=== PATIENT | male | born 1955 | race Caucasian/White ===

== ENCOUNTER → 2017-06-09 09:21 | Outpatient (CLI) | payer MEDICARE, SELFPAY ==
--- NOTE | 2017-06-09 09:23 | NM_ITS ---
CLINICAL: 62-year-old male with reported history of abdominal pain. RADIONUCLIDE HEPATOBILIARY SCINTIGRAPHY COMPARISON: None available FINDINGS: Following the intravenous administration of 5.4 mCi of 99m Tc Mebrofenin, hepatobiliary images reveal:. 1. Relatively prompt and homogeneous radiopharmaceutical concentration is noted by a normal sized liver. No parenchymal defects are identified. 2. Gallbladder activity is identified at 15 minutes post radiopharmaceutical administration. 3. Small intestinal tract is not visualized during 60 minutes of pre-fatty meal sequential image acquisition with small bowel observed following fatty meal consumption. 4. Washout of the radiopharmaceutical by the hepatic parenchyma appears qualitatively normal. The patient was administered a fatty meal (8 ounces of Boost). The post fatty meal ingestion gallbladder ejection fraction calculated at 60 minutes was noted to be 24.0 % (normal greater than 30%). [place]/Hepatobilliary Img w/Pharm Int IMPRESSION: 1. ABNORMAL 99m Tc Mebrofenin hepatobiliary imaging examination with fatty meal ingestion. A. A gallbladder ejection fraction calculated to be less than 30% following the administration of an ingested fatty meal is consistent with the presence of functional hepatobiliary disease (gallbladder and/or sphincter of Oddi dyskinesia) and/or organic hepatobiliary disease (chronic acalculous cholecystitis and/or cystic duct syndrome) in patients with intermediate to high pretest probabilities of hepatobiliary illness. (Paige and Dung, J Nucl Med 43: 1603, 2002). Electronically Signed: Edin Chiu DO at 23:10 EDT Tel , Service support ,
== END ==
PROVIDERS: Family Provider Internal Medicine Infectious Disease; PCP Internal Medicine Infectious Disease; Visit Provider Surgery
DX: R10.11 Right upper quadrant pain (principal)
CPT/HCPCS: 78227; A9537

== ENCOUNTER → 2017-06-10 15:35 | Outpatient (CLI) | payer MEDICARE, SELFPAY ==
[2017-06-10 16:47] LABS: Amphetamine Urine VISTA NEGATIVE (<1000 ng/mL); Barbiturate Urine VISTA NEGATIVE (< 200 ng/mL); Benzodiazepine Urine VISTA NEGATIVE (< 200 ng/mL); Cocaine Urine VISTA NEGATIVE (< 300 ng/mL); Ecstacy Urine VISTA NEGATIVE (< 500 ng/mL); Methadone Urine VISTA NEGATIVE (< 300 ng/mL); PCP Urine VISTA NEGATIVE (< 25 ng/mL); THC Urine VISTA NEGATIVE (< 50 ng/mL); Vista UDS pH Range 4
== END ==
PROVIDERS: Family Provider Internal Medicine Infectious Disease; PCP Internal Medicine Infectious Disease; Visit Provider Anesthesiology Pain Medicine
DX: F11.20 Opioid dependence, uncomplicated (principal)
CPT/HCPCS: 80307

== ENCOUNTER → 2017-07-22 15:15 | Outpatient (CLI) | payer MEDICARE, SELFPAY ==
--- NOTE | 2017-07-22 15:15 | DT_ITS ---
This patient was seen during an EMR downtime July 20, 2017 - July 27, 2017. This patient may have a combination of paper and electronic documentation or all paper documentation. All documentation is viewable within the e-chart portion of [facility] for each patient visit.
== END ==
PROVIDERS: Family Provider Internal Medicine Infectious Disease; PCP Internal Medicine Infectious Disease; Visit Provider Otolaryngology
DX: J32.9 Chronic sinusitis, unspecified (principal)
CPT/HCPCS: 87070; 87205

== ENCOUNTER → 2017-09-16 12:36 | Outpatient (CLI) | payer MEDICARE, SELFPAY ==
[2017-09-16 13:58] LABS: Amphetamine Urine VISTA NEGATIVE (<1000 ng/mL); Barbiturate Urine VISTA NEGATIVE (< 200 ng/mL); Benzodiazepine Urine VISTA NEGATIVE (< 200 ng/mL); Cocaine Urine VISTA NEGATIVE (< 300 ng/mL); Ecstacy Urine VISTA NEGATIVE (< 500 ng/mL); Methadone Urine VISTA NEGATIVE (< 300 ng/mL); PCP Urine VISTA NEGATIVE (< 25 ng/mL); THC Urine VISTA NEGATIVE (< 50 ng/mL); Vista UDS pH Range 5
== END ==
PROVIDERS: Family Provider Internal Medicine Infectious Disease; PCP Internal Medicine Infectious Disease; Visit Provider Anesthesiology Pain Medicine
DX: F11.20 Opioid dependence, uncomplicated (principal)
CPT/HCPCS: 80307

== ENCOUNTER → 2017-12-17 08:49 | Outpatient (CLI) | payer MEDICARE, SELFPAY ==
--- NOTE | 2017-12-17 08:51 | RAD_ITS ---
STUDY: X-RAY - RIGHT KNEE REASON FOR EXAM: Chronic pain. TECHNIQUE: 4 view(s) of the knee. COMPARISON: None. FINDINGS: Normal visualized distal femur. Normal visualized proximal tibia and fibula. Normal proximal tibiofibular articulation. Normal medial femorotibial compartment. Normal lateral femorotibial compartment. There is mild joint space narrowing of the patellofemoral articulation. There is chondrocalcinosis. There is a small joint effusion. There is vascular calcification. RAD/Knee 4 or More Views IMPRESSION: Mild patellofemoral arthrosis. Chondrocalcinosis. Small joint effusion. Electronically Signed: Austin Schaffer MD at 11:34 EDT Tel , Service support ,
--- NOTE | 2017-12-17 08:51 | RAD_ITS ---
STUDY: X-RAY - LEFT KNEE REASON FOR EXAM: Chronic pain. TECHNIQUE: 4 view(s) of the knee. COMPARISON: Radiographs 11/21/2014. FINDINGS: Normal visualized distal femur. Normal visualized proximal tibia and fibula. Normal proximal tibiofibular articulation. Normal medial femorotibial compartment. There is mild joint space narrowing of the lateral femorotibial compartment. There is a very small patellar osteophyte and mild joint space narrowing of the patellofemoral articulation. There is chondrocalcinosis. There is a small joint effusion. RAD/Knee 4 or More Views IMPRESSION: Mild arthrosis of the lateral femorotibial and patellofemoral compartments as on the prior study. Chondrocalcinosis. Small joint effusion. Electronically Signed: Austin Schaffer MD at 11:33 EDT Tel , Service support ,
== END ==
PROVIDERS: Family Provider Internal Medicine Infectious Disease; PCP Internal Medicine Infectious Disease; Referring Provider Orthopaedic Surgery; Visit Provider Orthopaedic Surgery
DX: M25.561 Pain in right knee (principal); M25.562 Pain in left knee
CPT/HCPCS: 73564

== ENCOUNTER 2018-05-14 09:18 | Day surgery (SDC) | payer MEDICARE, SELFPAY ==
[2018-05-14 09:58] VITALS: BP 146/65; PULSE 67; RESP 18; TEMP 36.9; O2SAT 98; BMI 31.8
[2018-05-14 10:20] LABS: Bedside Glucose 218 mg/dL (70-110)
[2018-05-14] MEDS: Vancomycin IV 1,000 MG/200 ML BAG 200 MG IV (13:25)
[2018-05-14] MEDS: Bupiv/Epi 0.25% 30 ML Vial (13:37)
[2018-05-14 14:28] VITALS: BP 134/62; BP 146/65; PULSE 64; RESP 16; TEMP 36.1; O2SAT 96
[2018-05-14 14:44] VITALS: BP 144/68; BP 146/65; PULSE 64; RESP 16; O2SAT 98
[2018-05-14 14:59] VITALS: BP 146/65; BP 147/63; PULSE 66; RESP 16; TEMP 36.1; O2SAT 99
[2018-05-14 16:08] VITALS: BP 146/65
== END 2018-05-14 16:09 | disposition home or self-care (01) ==
LOC: SDC 09:20 → AC 09:22
PROVIDERS: Family Provider Internal Medicine Infectious Disease; PCP Internal Medicine Infectious Disease; Referring Provider Anesthesiology Pain Medicine; Visit Provider Anesthesiology Pain Medicine
PROC: (CPT 63688; principal; 2018-05-14 10:45)
DX: M96.1 Postlaminectomy syndrome, not elsewhere classified (principal); M54.10 Radiculopathy, site unspecified; M54.5 Low back pain; G89.29 Other chronic pain; I25.10 Atherosclerotic heart disease of native coronary artery without angina pectoris; Z79.01 Long term (current) use of anticoagulants; E11.9 Type 2 diabetes mellitus without complications; I10 Essential (primary) hypertension; E78.00 Pure hypercholesterolemia, unspecified; G47.30 Sleep apnea, unspecified; K21.9 Gastro-esophageal reflux disease without esophagitis; Z79.84 Long term (current) use of oral hypoglycemic drugs; Z79.82 Long term (current) use of aspirin; Z79.899 Other long term (current) drug therapy; Z87.891 Personal history of nicotine dependence; Z95.5 Presence of coronary angioplasty implant and graft
CPT/HCPCS: 00300; 63685; 95972; 76000; 82962; J7120

== ENCOUNTER → 2018-12-01 15:32 | Outpatient (CLI) | payer MEDICARE, SELFPAY ==
[2018-12-01 16:50] LABS: Amphetamine Urine VISTA NEGATIVE (<1000 ng/mL); Barbiturate Urine VISTA NEGATIVE (< 200 ng/mL); Benzodiazepine Urine VISTA NEGATIVE (< 200 ng/mL); Cocaine Urine VISTA NEGATIVE (< 300 ng/mL); Ecstacy Urine VISTA NEGATIVE (< 500 ng/mL); Methadone Urine VISTA NEGATIVE (< 300 ng/mL); PCP Urine VISTA NEGATIVE (< 25 ng/mL); THC Urine VISTA NEGATIVE (< 50 ng/mL); Vista UDS pH Range 5
== END ==
PROVIDERS: Family Provider Internal Medicine Infectious Disease; PCP Internal Medicine Infectious Disease; Referring Provider Anesthesiology Pain Medicine; Visit Provider Anesthesiology Pain Medicine
DX: F11.20 Opioid dependence, uncomplicated (principal)
CPT/HCPCS: 80307

== ENCOUNTER → 2019-01-03 12:36 | Outpatient (CLI) | payer MEDICARE, SELFPAY ==
--- NOTE | 2019-01-03 12:39 | RAD_ITS ---
STUDY: X-RAY - PELVIS AND LEFT HIP REASON FOR EXAM: Male, 63 years old. Chronic pain for 15 years after accident TECHNIQUE: 3 views of the pelvis and hip. COMPARISON: None. FINDINGS: The left hip is intact and located. There is flattening of the femoral head neck junction. Mineralization is normal. The bones of the pelvis are intact. Lower abdominal gas shadows are unremarkable. RAD/HIP, UNI W/ Pelvis 2-3 Views IMPRESSION: 1. No acute findings of trauma. 2. 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 Refer to definitive imaging with [facility] Electronically Signed: Monalisa Cruz, at 19:06 EST Tel , Service support ,
--- NOTE | 2019-01-03 12:40 | RAD_ITS ---
STUDY: X-RAY - LUMBAR SPINE REASON FOR EXAM: Male, 63 years old. Chronic pain for 15 years after accident, recent trauma weeks ago TECHNIQUE: 3 view(s) of the lumbar spine were obtained. COMPARISON: 12 Jul 2014 FINDINGS: Lumbar spine is intact and aligned with moderate diffuse degenerative change. There is multilevel ventral fusing osteophytes. Mineralization is normal. SI joints are intact. Electronic termination device is present in the left flank with leads ascending superior to the upper edge of the film. Hips are located. Appearance is similar to prior. RAD/Lumbar Spine 2 or 3 Views IMPRESSION: 1. No acute findings or change since prior. 2. Moderate degenerative change. Electronically Signed: Monalisa Cruz, at 18:50 EST Tel , Service support ,
== END ==
PROVIDERS: Family Provider Internal Medicine Infectious Disease; PCP Internal Medicine Infectious Disease; Referring Provider Anesthesiology Pain Medicine; Visit Provider Anesthesiology Pain Medicine
DX: M54.9 Dorsalgia, unspecified (principal); M25.552 Pain in left hip; G89.29 Other chronic pain
CPT/HCPCS: 72100; 73502

== ENCOUNTER → 2019-10-04 16:33 | Outpatient (CLI) | payer MEDICARE, SELFPAY ==
--- NOTE | 2019-10-04 16:38 | RAD_ITS ---
HISTORY: CONSTIPATION, PAIN, HERNIA EXAMINATION/TECHNIQUE: XR Abdomen W/ Erect View: 4 views total COMPARISON: Small bowel series 07/12/2013 FINDINGS: No free peritoneal air. Nonspecific intestinal gas pattern. No bowel obstruction. Scattered colonic stool. Nondilated small bowel loop within the central abdomen. Lumbar spine and lower dorsal syndesmophytes. Partial ankylosis of the upper left SI joint. Paired dorsal column neurostimulator electrodes at the lower dorsal spine. RAD/Abd Inc Decub and/or Erect IMPRESSION: 1. No bowel obstruction or significant constipation. 2. Nonspecific intestinal gas pattern. Consider further correlation with CT. at 0510 Reported and signed by: Venkatesh Reyes MD Electronically Signed: Venkatesh Reyse, at 5:36 EDT Tel , Service support ,
== END ==
PROVIDERS: PCP Internal Medicine Infectious Disease; Referring Provider Internal Medicine Gastroenterology; Visit Provider Internal Medicine Gastroenterology
DX: K59.00 Constipation, unspecified (principal); R10.9 Unspecified abdominal pain
CPT/HCPCS: 74019

== ENCOUNTER → 2019-10-26 15:11 | Outpatient (CLI) | payer MEDICARE, SELFPAY ==
[2019-10-26 17:24] LABS: Amphetamine Urine VISTA NEGATIVE (<1000 ng/mL); Barbiturate Urine VISTA NEGATIVE (< 200 ng/mL); Benzodiazepine Urine VISTA NEGATIVE (< 200 ng/mL); Cocaine Urine VISTA NEGATIVE (< 300 ng/mL); Ecstacy Urine VISTA NEGATIVE (< 500 ng/mL); Methadone Urine VISTA NEGATIVE (< 300 ng/mL); PCP Urine VISTA NEGATIVE (< 25 ng/mL); THC Urine VISTA NEGATIVE (< 50 ng/mL); Vista UDS pH Range 5
== END ==
PROVIDERS: PCP Internal Medicine Infectious Disease; Referring Provider Anesthesiology Pain Medicine; Visit Provider Anesthesiology Pain Medicine
DX: F11.20 Opioid dependence, uncomplicated (principal)
CPT/HCPCS: 80307

== ENCOUNTER → 2020-03-14 16:55 | Outpatient (CLI) | payer MEDICARE, SELFPAY ==
[2020-03-14 17:46] LABS: Amphetamine Urine VISTA NEGATIVE (<1000 ng/mL); Barbiturate Urine VISTA NEGATIVE (< 200 ng/mL); Benzodiazepine Urine VISTA NEGATIVE (< 200 ng/mL); Cocaine Urine VISTA NEGATIVE (< 300 ng/mL); Ecstacy Urine VISTA NEGATIVE (< 500 ng/mL); Methadone Urine VISTA NEGATIVE (< 300 ng/mL); PCP Urine VISTA NEGATIVE (< 25 ng/mL); THC Urine VISTA NEGATIVE (< 50 ng/mL); Vista UDS pH Range 5
== END ==
PROVIDERS: PCP Internal Medicine Infectious Disease; Referring Provider Anesthesiology Pain Medicine; Visit Provider Anesthesiology Pain Medicine
DX: F11.20 Opioid dependence, uncomplicated (principal)
CPT/HCPCS: 80307

== ENCOUNTER → 2020-06-28 16:49 | Outpatient (CLI) | payer MEDICARE, SELFPAY ==
[2020-06-12 18:59] VITALS: BMI 31.8
[2020-06-28 17:24] LABS: Amphetamine Urine VISTA NEGATIVE (<1000 ng/mL); Barbiturate Urine VISTA NEGATIVE (< 200 ng/mL); Benzodiazepine Urine VISTA NEGATIVE (< 200 ng/mL); Cocaine Urine VISTA NEGATIVE (< 300 ng/mL); Ecstacy Urine VISTA NEGATIVE (< 500 ng/mL); Methadone Urine VISTA NEGATIVE (< 300 ng/mL); PCP Urine VISTA NEGATIVE (< 25 ng/mL); THC Urine VISTA NEGATIVE (< 50 ng/mL); Vista UDS pH Range 5
== END ==
PROVIDERS: Referring Provider Anesthesiology Pain Medicine; Visit Provider Anesthesiology Pain Medicine
DX: F11.20 Opioid dependence, uncomplicated (principal)
CPT/HCPCS: 80307

== ENCOUNTER 2021-03-13 17:32 | Outpatient (CLI) | payer MEDICARE, SELFPAY ==
[2021-03-13 18:42] LABS: Amphetamine Urine VISTA NEGATIVE (<1000 ng/mL); Barbiturate Urine VISTA NEGATIVE (< 200 ng/mL); Benzodiazepine Urine VISTA NEGATIVE (< 200 ng/mL); Cocaine Urine VISTA NEGATIVE (< 300 ng/mL); Ecstacy Urine VISTA NEGATIVE (< 500 ng/mL); Methadone Urine VISTA NEGATIVE (< 300 ng/mL); PCP Urine VISTA NEGATIVE (< 25 ng/mL); THC Urine VISTA NEGATIVE (< 50 ng/mL); Vista UDS pH Range 5
== END 2021-03-13 23:59 | disposition short-term general hospital (02) ==
PROVIDERS: PCP Internal Medicine Infectious Disease; Referring Provider Anesthesiology Pain Medicine; Visit Provider Anesthesiology Pain Medicine
DX: F11.20 Opioid dependence, uncomplicated (principal)
CPT/HCPCS: 80307

== ENCOUNTER → 2021-08-02 | Outpatient (CLI) | payer MEDICARE, SELFPAY | END | disposition home or self-care (01) | LOC: LABSPEC 13:49 | PROVIDERS: PCP Internal Medicine Infectious Disease; Visit Provider Podiatrist | DX: L97.512 Non-pressure chronic ulcer of other part of right foot with fat layer exposed (principal) | CPT/HCPCS: 87070; 87075; 87077; 87186; 87205 ==

== ENCOUNTER 2021-08-06 09:34 | Outpatient (RCR) | payer MEDICARE, SELFPAY ==
[2021-08-06 09:46] VITALS: BP 129/50; PULSE 68; RESP 18; TEMP 36.1; BMI 29.5
--- NOTE | 2021-08-06 10:33 | PCM.WC.HP ---
History of Present Illness Date of Service: 08/06/21 Progress of Wound: This 66-year-old male with history of diabetes presented to my office on 08/02/2021. Patient had developed a blister plantar first metatarsal head when debrided this yielded a full-thickness ulceration with significant edema and erythema to the first metatarsal head on the right side. This was debrided in my office. Wound was cultured at that time and prescription for doxycycline and ciprofloxacin was dispensed. Patient was instructed to offload the site with a surgical shoe and first metatarsal head offloading pad. He was compliant with this. He notes significant improvement upon his visit today. Patient denies constitutional symptoms or pain and has no other complaints. [facility] Medical History Abnormal ultrasound of gallbladder Benign hypertension CAD (coronary artery disease) Chronic back pain Chronic neck pain Diabetes Diabetes Encounter for long-term (current) insulin use GERD (gastroesophageal reflux disease) GERD (gastroesophageal reflux disease) Glaucoma Gout HTN (hypertension) Obesity Sleep apnea Home Medications aspirin 81 mg tablet,delayed release (Adult Aspirin Regimen) 81 mg PO QDAY 06/01/17 [History Last Taken Unknown] bimatoprost 0.01 % eye drops (Lumigan) 1 drp ophthalmic (eye) QPM 06/01/17 [History Last Taken Unknown] calcitriol 3 mcg/gram topical ointment (Vectical) 1 applic topical PRN PRN Rash/Topical Irritation 06/01/17 [History Last Taken Unknown] calcium carbonate 500 mg calcium (1,250 mg) tablet (Calcium 500) 500 mg PO DAILY 06/01/17 [History Last Taken Unknown] coenzyme Q10 100 mg capsule 100 mg PO QDAY 06/01/17 [History Last Taken Unknown] dorzolamide 22.3 mg-timolol 6.8 mg/mL eye drops (Cosopt) 1 drp ophthalmic (eye) BID 06/01/17 [History Last Taken Unknown] gabapentin 600 mg tablet 600 mg PO TID 06/01/17 [History Last Taken 05/14/18 05:00] magnesium oxide 400 mg PO QDAY 06/01/17 [History Last Taken Unknown] metoprolol succinate 50 mg tablet,extended release 24 hr 50 mg PO BID 06/01/17 [History Last Taken 05/14/18 05:00] morphine 15 mg immediate release tablet 15 mg PO BID 06/01/17 [History Last Taken 05/14/18 05:00] nitroglycerin 0.4 mg sublingual tablet 0.4 mg sublingual Q5M PRN CHEST PAIN 06/01/17 [History Last Taken Unknown] omega-3 fatty acids 1,000 mg capsule (Fish Oil Concentrate) 1,000 mg PO QDAY 06/01/17 [History Last Taken Unknown] omeprazole 40 mg capsule,delayed release 40 mg PO QDAY 06/01/17 [History Last Taken 05/14/18 05:00] oxymetazoline 0.05 % nasal spray (Afrin (oxymetazoline)) 2 spray intranasal Q12H PRN Allergies 06/01/17 [History Last Taken Unknown] polyethylene glycol 3350 8.5 gram oral powder packet 17 g PO QDAY 06/01/17 [History Last Taken Unknown] pravastatin 40 mg tablet 40 mg PO QHS 06/01/17 [History Last Taken Unknown] tizanidine 4 mg tablet 4 mg PO BID 06/01/17 [History Last Taken Unknown] topiramate 200 mg capsule sprinkle,extended release 24 hr 200 mg PO BID 06/01/17 [History Last Taken 05/14/18 06:00] tramadol 50 mg tablet 50 mg PO Q6H PRN PRN Pain 06/01/17 [History Last Taken Unknown] rivaroxaban 10 mg tablet (Xarelto) 10 mg PO DAILY 12/17/17 [History Last Taken Unknown] sotalol 160 mg tablet 160 mg PO BID 05/10/18 [History Last Taken 05/14/18 05:00] lancets 33 gauge (OneTouch Delica Plus Lancet) #100 ea 06/12/20 [Rx Last Taken Unknown] Accu-Chek Fastclix Lancet Drum (lancets) #102 ea 07/12/20 [Rx Last Taken Unknown] apixaban 5 mg tablet 5 mg PO BID 09/11/20 [History Last Taken Unknown] flash glucose scanning reader ([employer] Medical SolutionsStyle Mp 2 [place]) #1 ea 09/11/20 [Rx Last Taken Unknown] flash glucose sensor (FreeStyle Mp 2 Sensor) #2 ea 09/11/20 [Rx Last Taken Unknown] gabapentin 800 mg tablet 800 mg PO DAILY 09/11/20 [History Last Taken Unknown] netarsudil 0.02 % eye drops 1 drp ophthalmic (eye) ONCE 09/11/20 [History Last Taken Unknown] alcohol swabs (BD Alcohol Swabs) 1 pad topical 4X/DAY #200 ea 09/13/20 [Rx Last Taken Unknown] insulin aspart U-100 100 unit/mL (3 mL) subcutaneous pen (Novolog Flexpen U-100 Insulin aspart) 35 unit (0.35 mL) subcut .TIDCM #33 mL 12/03/20 [Rx Last Taken Unknown] blood sugar diagnostic (OneTouch Verio test strips) #100 ea 04/10/21 [Rx Last Taken Unknown] pen needle, diabetic 32 gauge x 1/4 (Novofine 32) #120 ea 04/10/21 [Rx Last Taken Unknown] Allergy/AdvReac Type Severity Reaction Status Date / Time Penicillins Allergy Mild rash Verified 03/19/21 15:42 Sulfa (Sulfonamide Allergy Mild rash Verified 03/19/21 15:42 Antibiotics) Family History Mother Cancer liver Father Colon cancer Cancer lung CVA (cerebral vascular accident) Surgical History H/O heart artery stent (~01/2017) H/O nephrolithotomy with removal of calculi H/O sinus surgery History of back surgery History of esophagogastroduodenoscopy (EGD) (~03/2017) History of neck surgery S/P colonoscopy S/P foot surgery Status post cardiac catheterization Status post carotid surgery (~05/2016) Social History Smoking Status: Former smoker alcohol intake: never ROS Constitutional Constitutional: Denies systems reviewed and no addt'l complaints, except as documented, change in weight or chills Eyes Eyes: Denies acute decrease in peripheral vision, change in vision or double vision ENT HEENT: Denies change in voice, epistaxis or facial pain Cardiovascular Cardiovascular: Denies abdominal pain, chest pain with activity or dyspnea at rest Respiratory/Chest Respiratory/Chest: Denies chest congestion, dyspnea or dyspnea on exertion Gastrointestinal Gastrointestinal: Denies bloating, change in bowel habits or cramping Genitourinary Genitourinary: Denies burning urination, change in libido or dribbling Musculoskeletal Musculoskeletal: Denies back pain, deformity or limited range of motion Vital Signs Vital Signs Vital Signs: 08/06/21 09:46 Temperature 96.9 F L Temperature Source Temporal Pulse Rate 68 Respiratory Rate 18 Blood Pressure 129/50 H Blood Pressure Mean 76 Blood Pressure Source Monitor Blood Pressure Position Sitting Blood Pressure Location Left Arm Oxygen Delivery Method Room Air Weight Weight: 104.326 kg Body Mass Index (BMI) 29.5 Physical Exam Narrative Patient is alert oriented person place and time. Vascular: Dorsalis pedis posterior tibial pulses palpable 2 out of 4. Atrophic skin changes noted with skin thinning shiny taut appearance diminished digital hair growth. Neurologic: Light touch protective sensation absent to bilateral feet Dermatologic: Healed right plantar first metatarsal head ulceration resolving erythema and edema to the site. Callus to plantar left first metatarsal head. Musculoskeletal: Dropfoot right lower extremity. No other deformities at this time. No pain with gaseous bilateral feet. Debridement Note Debridement Note Post-Debridement Measurements and Additional Note: Post-Debridement Measurements/Treatment - Nurse 1 - General Ulcer Assessment Start: 08/06/21 09:46 Freq: Status: Active Protocol: KAELA.LOWEXT Activity Type Activity Date Activity User E-sign Co-sign Detail Recorded Client Recorded Date Recorded By Document 08/06/21 09:46 [id number] 08/06/21 10:09 08/06/21 09:46 - Today's Visit Information Arrival Mode Ambulatory,Cane Transfer Assistance None Accompanied by self Patient Identification Verified (Name & Yes ) Patient Requires Transmission-Based Yes Precautions Safety Precautions Fall Prevention Finger Stick Blood Sugar(mg/dl) (if 174 indicated): Blood Sugar Stated by Patient Height and Weight Height 6 ft 2 in Weight 104.326 kg Weight in Pounds 230.0 lbs Weight Measurement Method Stated by Patient Body Mass Index (BMI) 29.5 BMI Classification Overweight BSA - Aaron 2.31 Vital Signs Temperature (97.8 F-99.1 F) 96.9 F L Temperature Source Temporal Pulse Rate (60-100) 68 Respiratory Rate (12-18) 18 Respiratory rate source Observation Oxygen Delivery Method Room Air Blood Pressure (90/60-120/80) 129/50 H Blood Pressure Mean 76 Source Monitor Position Sitting Blood Pressure Location Left Arm History Since Last Visit- (Skip if this is Patient's initial visit) Left Footwear Regular Shoe Right Footwear Removable Cast Walker/Walking Boot Pain Scale: 0-10 Numeric Is Patient Pain Free? Yes Lower Extremity Assessment/ Foot Assessment/ Toe Nail Assessment Right -Popliteal Doppler Multiphasic -Posterior Tibial Palpable No -Posterior Tibial Doppler Multiphasic -Dorsalis Pedis Palpable No -Extremity Color Hemosiderin -Hair Growth on Legs No -Hair Growth on Toes No -Temperature of Extremity Warm -Capillary Refill Less than 3 Seconds -Dependent Rubor No -Lipodermatosclerosis No -Other Deformity No -Prior Foot Ulcer No -Charcot Joint No -Prior Amputation No -Thick No -Discolored No -Deformed Yes -Improper Length & Hygeine No Left -Claudication Assessment None -Posterior Tibial Doppler Multiphasic -Dorsalis Pedis Palpable No -Dorsalis Pedis Doppler Multiphasic -Extremity Color Hemosiderin -Hair Growth on Legs No -Hair Growth on Toes No -Capillary Refill Less than 3 Seconds -Dependent Rubor No -Lipodermatosclerosis No -Other Deformity No -Prior Foot Ulcer No -Charcot Joint No -Prior Amputation No -Thick No -Discolored No -Deformed Yes -Improper Length & Hygeine No Neuropathy Assessment Feet - Top Side and Bottom <Entered> (a) Communication Assessment Preferred language [place] [employer] Conditioning Manager Required No Able to Read Yes Able to Write Yes Communication Tools None Caregiver Communication Skills No Impairment Impairment Right Hearing Abillity Normal Left Hearing Abillity Normal Visual Assistive Devices Glasses Teaching Assessment Preferences Verbal,Written, Audio/Visual, Demonstration Barriers to Learning None Readiness To Learn Excellent Willingness to Engage in Self Management High Activies Readiness to Engage in Self Management High Activities Anxiety Level Calm Cooperation Cooperative Perception Coherent Interest in Health Problem Asks Questions Education Importance Acknowledges Need Does Patient Smoke tobacco or other Yes substances Smoking Status Former smoker Is Patient Diabetic Yes Functional Assessment Assistive Device With Patient Yes List Device(s) with Patient cane Culture/Sabianist/Insurance Service Representative Cultural/Sabianist Needs that may affect No Treatment Plan Would you allow our hospital licensed prosthetist/orthotist to No meet you for the purpose of spiritual/ emotional support? Insurance Service Representative to contact place of quaker No Teaching: Wound Center *Welcome to the Wound Center -Person Taught Patient -Teaching Method Discussion -Response to teaching Verbalize understanding (a) 1 - - WC - Nurse 1 - General Ulcer Measurement Start: 08/06/21 09:46 Freq: Status: Active Protocol: Activity Type Activity Date Activity User E-sign Co-sign Detail Recorded Client Recorded Date Recorded By Document 08/06/21 09:46 MW [id number] 08/06/21 10:09 MW 08/06/21 09:46 Wound Center Nurse 1 #2 Left plantar -Combined with other wound No -Current Size (cm) - Length 0.1 -Current Size (cm) - Width 0.1 -Current Size (cm) - Depth 0.1 -Total Square Cm 0.01 -Date of Last Picture (Recall this 08/06/21 field) -Photo Taken Yes -Epithelialization None Present -Tunneling No -Undermining/Tunneling No -Circular Undermining No -Exudate Amt None Present -Granulation Amt None Present (0 %) -Granulation Quality N/A -Slough/Fibrin Yes -Necrosis Amt Large (67-100%) -Necrotic Tissue Type Adherent Slough -Structure Exposed N/A -Texture (Etelvina-wound Skin Appearance) Assessed,Callus -Moisture (Etelvina-wound Skin Appearance) Assessed,Dry/ Scaly -Color (Etelvina-wound Skin Appearance) No Abnormality, Assessed -Temperature (Etelvina-wound Skin No Abnormality Appearance) (Pt Warm) -Tenderness on Palpation (Etelvina-wound No Skin Appearance) -Ulcer Cleansing Rinsed/ Irrigated with Saline -Foul Odor after Cleansing No -Anesthetic Used 4% Lidocaine Solution #1 right plantar -Combined with other wound No -Current Size (cm) - Length 0.1 -Current Size (cm) - Width 0.1 -Current Size (cm) - Depth 0.1 -Total Square Cm 0.01 -Date of Last Picture (Recall this 08/06/21 field) -Photo Taken Yes -Epithelialization None Present -Tunneling No -Undermining/Tunneling No -Circular Undermining No -Exudate Amt None Present -Wound Margin Flat & Intact -Granulation Amt None Present (0 %) -Granulation Quality N/A -Slough/Fibrin Yes -Necrosis Amt Large (67-100%) -Structure Exposed N/A -Texture (Etelvina-wound Skin Appearance) Assessed,Callus -Moisture (Etelvina-wound Skin Appearance) Assessed,Dry/ Scaly -Color (Etelvina-wound Skin Appearance) Assessed, Hemosiderin Staining -Temperature (Etelvina-wound Skin No Abnormality Appearance) (Pt Warm) -Tenderness on Palpation (Etelvina-wound No Skin Appearance) -Ulcer Cleansing Rinsed/ Irrigated with Saline -Foul Odor after Cleansing No -Anesthetic Used 4% Lidocaine Solution Lower Limb Edema Present Yes Right Calf (cm) 36.0 Right Ankle (cm) 21.5 Left Calf (cm) 36.8 Left Ankle (cm) 23.0 WC - Nurse 2 - General Ulcer CM Notes Start: 08/06/21 09:46 Freq: Status: Active Protocol: Activity Type Activity Date Activity User E-sign Co-sign Detail Recorded Client Recorded Date Recorded By Document 08/06/21 10:19 JONATHAN [id number] 08/06/21 10:24 JONATHAN 08/06/21 10:19 Wound Center Nurse 2 #2 Left plantar -Time 10:21 -Correct Patient No -Correct Side, Site, Position No -Correct Procedure No -Procedure Performed No -Post Debridement (cm) - Length 0 -Post Debridement (cm) - Width 0 -Post Debridement (cm) - Depth 0 -Total Square (Post) (cm) 0 -Area of Debridement (cm) - Length 0 -Area of Debridement (cm) - Width 0 -Total Square (Area) (cm) 0 -Tunneling No -Undermining/Tunneling No -Circular Undermining No -Wound/Ulcer Outcome Healed- Epithelialized -Ulcer Cleansing Rinsed/ Irrigated with Saline -Foul Odor after Cleansing No -Bioengineered Tissue No -Debridement - Subq, 1st 20sq cm No #1 right plantar -Correct Patient No -Correct Side, Site, Position No -Correct Procedure No -Procedure Performed No -Post Debridement (cm) - Length 0 -Post Debridement (cm) - Width 0 -Post Debridement (cm) - Depth 0 -Total Square (Post) (cm) 0 -Area of Debridement (cm) - Length 0 -Area of Debridement (cm) - Width 0 -Total Square (Area) (cm) 0 -Wound/Ulcer Outcome Healed- Epithelialized Pain Scale: 0-10 Numeric Is Patient Pain Free? Yes KAELA - Nurse 3 - General Ulcer D/C NN Start: 08/06/21 09:46 Freq: Status: Active Protocol: Activity Type Activity Date Activity User E-sign Co-sign Detail Recorded Client Recorded Date Recorded By Document 08/06/21 10:24 JONATHAN [id number] 08/06/21 10:24 JONATHAN 08/06/21 10:24 Is Patient Pain Free? Yes WC - Visit Discharge Discharge Condition Stable Ambulatory Status Ambulatory Transportation Private Auto Medication Reconcilliation completed & Yes provided to patient/care provider Clinical Summary of Care Provided Yes Assessment/Plan Assessment/Plan (1) Type 2 diabetes mellitus with diabetic polyneuropathy: CODE(S): E11.42 - Type 2 diabetes mellitus with diabetic polyneuropathy PLAN: Patient examined evaluated, all findings rm with patient in detail. Patient will complete his course of doxycycline and ciprofloxacin. If he notes any residual redness or worsening of his harjinder or recurrence of his wound he will contact us immediately. Patient will return to his diabetic shoes with AFO on the right lower extremity. Patient will continue to check his feet daily perform tight blood glucose regulation and ambulate in diabetic shoes at all times. If his wounds recur we will consider additional vascular testing, advanced wound care products, total contact casting. Patient will follow up in 3 weeks in my clinic for additional follow-up to ensure no recurrence of infection or wound.
[2021-08-06 11:29] LABS: Hemoglobin A1c 6.9 % (3.8-5.6)
[2021-08-06 11:33] LABS: Erythrocyte Sedimentation Rate 38 mm/hr (0-20)
[2021-08-06 11:35] LABS: Absolute Lymphocyte Count 2.39 X10^3/uL (0.83-4.51); Absolute Neutrophil Count 4.6 X10^3/uL (2.0-7.7); Basophil# 0.03 X10^3/uL; Basophil% 0.4 % (0-1); Eosinophils% 1.3 % (0-5); Hematocrit 37.1 % (40-54); Hemoglobin 12.2 g/dL (13.0-16.5); Lymphocyte # 2.39 X10^3/ul (0.83-4.51); Mean Corp Hgb Conc 32.9 g/dL (32-36); Mean Corpuscular Volume 91.4 fL (80-94); Mean Platelet Vol. 10.5 fl (6.2-12.0); Monocyte# 0.58 X10^3/uL; Monocyte% 7.5 % (0-10); NRBC Flagged by Analyzer 0 % (0-5); Neutrophil % 59.5 % (47-70); Platelet Count 169 K/mm3 (150-450); RBC Distribution Width CV 14.5 % (11.6-14.6); RBC Distribution Width SD 48.4 fl (35.1-43.9); Red Blood Count 4.06 M/mm3 (4.6-6.2); White Blood Count 7.7 K/mm3 (4.4-11.0)
[2021-08-06 11:41] LABS: ALB/GLOB Ratio 0.9 RATIO (0.9-2.4); AST(SGOT) 25 U/L (15-37); Alanine Aminotransfer ALT/SGPT 39 U/L (16-61); Albumin, Serum 3.4 g/dL (3.2-5.0); Alkaline Phosphatase 80 U/L (45-117); Anion Gap 7 (5-15); BUN 29 mg/dL (7-18); BUN/Creat Ratio 30.1 RATIO (10-20); CRP 3.65 mg/L (0.0-3.0); Chloride 108 mmol/L (98-107); Creatinine, Serum 0.96 mg/dL (0.70-1.30); EST Glomerular Filtration Rate 83 mL/min (>60); Est Glom Filt Rate - Afr Amer 101 mL/min (>60); Estimated Creatinine Clearance 90.38 ml/min; Globulin 3.9 g/dL (2.2-4.2); Glucose 154 mg/dL (74-106); Protein, Total 7.3 g/dL (6.4-8.2); Sodium Level 143 mmol/L (136-145)
== END 2021-08-07 16:11 | disposition home or self-care (01) ==
LOC: WC 09:34
PROVIDERS: PCP Internal Medicine Infectious Disease; Referring Provider Podiatrist; Visit Provider Podiatrist
DX: Z09 Encounter for follow-up examination after completed treatment for conditions other than malignant neoplasm (principal); E11.42 Type 2 diabetes mellitus with diabetic polyneuropathy; Z79.4 Long term (current) use of insulin; I10 Essential (primary) hypertension; R60.0 Localized edema; M54.9 Dorsalgia, unspecified; M21.371 Foot drop, right foot; L84 Corns and callosities; I25.10 Atherosclerotic heart disease of native coronary artery without angina pectoris; G89.29 Other chronic pain; H40.9 Unspecified glaucoma; M10.9 Gout, unspecified; G47.30 Sleep apnea, unspecified; E66.9 Obesity, unspecified; Z68.29 Body mass index [BMI] 29.0-29.9, adult; Z79.82 Long term (current) use of aspirin; Z79.01 Long term (current) use of anticoagulants; Z79.899 Other long term (current) drug therapy; Z95.1 Presence of aortocoronary bypass graft; Z87.891 Personal history of nicotine dependence
CPT/HCPCS: 36415; 80053; 83036; 85025; 85652; 86140; 99213; G0463

== ENCOUNTER → 2021-12-31 | Outpatient (CLI) | payer MEDICARE, SELFPAY | END | disposition home or self-care (01) | PROVIDERS: PCP Internal Medicine Infectious Disease; Visit Provider Podiatrist | DX: L97.512 Non-pressure chronic ulcer of other part of right foot with fat layer exposed (principal) | CPT/HCPCS: 87070; 87075; 87077; 87186; 87205 ==

== ENCOUNTER → 2022-03-17 | Outpatient (CLI) | payer MEDICARE, SELFPAY ==
[2022-03-17 15:38] LABS: Hematocrit 35.2 % (40-54); Hemoglobin 11.5 g/dL (13.0-16.5); Mean Corp Hgb Conc 32.7 g/dL (32-36); Mean Corpuscular Volume 91.9 fL (80-94); Mean Platelet Vol. 11.9 fl (6.2-12.0); Platelet Count 115 K/mm3 (150-450); RBC Distribution Width CV 14.6 % (11.6-14.6); RBC Distribution Width SD 48.3 fl (35.1-43.9); Red Blood Count 3.83 M/mm3 (4.6-6.2); White Blood Count 6.1 K/mm3 (4.4-11.0)
[2022-03-17 16:14] LABS: ALB/GLOB Ratio 0.9 RATIO (0.9-2.4); AST(SGOT) 24 U/L (15-37); Alanine Aminotransfer ALT/SGPT 29 U/L (16-61); Albumin, Serum 3.4 g/dL (3.2-5.0); Alkaline Phosphatase 64 U/L (45-117); Anion Gap 11 (5-15); BUN 20 mg/dL (7-18); BUN/Creat Ratio 23.2 RATIO (10-20); Calcium,Total 8.9 mg/dL (8.5-10.1); Chloride 108 mmol/L (98-107); Creatinine, Serum 0.86 mg/dL (0.70-1.30); EST Glomerular Filtration Rate 95 mL/min (>60); Est Glom Filt Rate - Afr Amer 114 mL/min (>60); Globulin 3.7 g/dL (2.2-4.2); Glucose 167 mg/dL (74-106); Potassium 3.8 mmol/L (3.5-5.1); Protein, Total 7.1 g/dL (6.4-8.2); Sodium Level 141 mmol/L (136-145); Thyroid Stim Hormone (TSH) 5.17 uIU/mL (0.358-3.74)
[2022-03-17 16:17] LABS: Vitamin B12 605 pg/mL (211-911)
[2022-03-21 03:07] LABS: Free Kappa Light Chains 113.5 mg/L (3.3-19.4); Free Lambda Light Chains 39.4 mg/L (5.7-26.3)
[2022-03-21 21:23] LABS: Vitamin B1, Thiamine 287.8 nmol/L (66.5-200.0)
== END | disposition home or self-care (01) ==
PROVIDERS: PCP Internal Medicine Infectious Disease; Referring Provider Psychiatry & Neurology Neurology; Visit Provider Psychiatry & Neurology Neurology
DX: R93.2 Abnormal findings on diagnostic imaging of liver and biliary tract (principal); E11.65 Type 2 diabetes mellitus with hyperglycemia; G31.84 Mild cognitive impairment of uncertain or unknown etiology; G62.9 Polyneuropathy, unspecified
CPT/HCPCS: 36415; 80053; 82607; 82746; 83883; 84425; 84443; 85027

== ENCOUNTER → 2022-05-21 | Outpatient (CLI) | payer MEDICARE, OTHER, SELFPAY ==
[2022-05-21 17:18] LABS: Absolute Lymphocyte Count 1.75 X10^3/uL (0.83-4.51); Absolute Neutrophil Count 3.5 X10^3/uL (2.0-7.7); Basophil# 0.03 X10^3/uL; Basophil% 0.5 % (0-1); Eosinophil# 0.15 X10^3/uL; Eosinophils% 2.6 % (0-5); Hematocrit 32.3 % (40-54); Hemoglobin 10.2 g/dL (13.0-16.5); Lymphocyte # 1.75 X10^3/ul (0.83-4.51); Lymphocyte % 29.9 % (19-41); Mean Corp Hgb Conc 31.6 g/dL (32-36); Mean Corpuscular Hgb 29.6 pg (27.0-32.0); Mean Corpuscular Volume 93.6 fL (80-94); Mean Platelet Vol. 10.6 fl (6.2-12.0); Monocyte# 0.46 X10^3/uL; Monocyte% 7.9 % (0-10); NRBC Flagged by Analyzer 0 % (0-5); Neutrophil # 3.45 X10^3/uL (2.7-7.7); Neutrophil % 58.9 % (47-70); Platelet Count 123 K/mm3 (150-450); RBC Distribution Width CV 14.1 % (11.6-14.6); Red Blood Count 3.45 M/mm3 (4.6-6.2); White Blood Count 5.9 K/mm3 (4.4-11.0)
[2022-05-21 18:21] LABS: AST(SGOT) 27 U/L (15-37); Alanine Aminotransfer ALT/SGPT 33 U/L (16-61); Albumin, Serum 3.3 g/dL (3.2-5.0); Alkaline Phosphatase 70 U/L (45-117); Anion Gap 3 (5-15); BUN 23 mg/dL (7-18); BUN/Creat Ratio 21.1 RATIO (10-20); Calcium,Total 8.7 mg/dL (8.5-10.1); Chloride 103 mmol/L (98-107); Creatinine, Serum 1.09 mg/dL (0.70-1.30); EST Glomerular Filtration Rate 72 mL/min (>60); Est Glom Filt Rate - Afr Amer 87 mL/min (>60); Globulin 3.4 g/dL (2.2-4.2); Glucose 145 mg/dL (74-106); Potassium 3.9 mmol/L (3.5-5.1); Protein, Total 6.7 g/dL (6.4-8.2); Sodium Level 139 mmol/L (136-145)
== END | disposition home or self-care (01) ==
PROVIDERS: PCP Internal Medicine Infectious Disease
DX: I25.110 Atherosclerotic heart disease of native coronary artery with unstable angina pectoris (principal)
CPT/HCPCS: 36415; 80053; 85025

== ENCOUNTER → 2022-07-10 | Outpatient (CLI) | payer MEDICARE, OTHER, SELFPAY ==
--- NOTE | 2022-07-10 15:26 | CT_ITS ---
INDICATION: Hx lumbar surgery L5-S1; gait D/O;cent canal steno EXAMINATION: CT LUMBAR SPINE - CT Spine Lumbar W/O Contrast Injection TECHNIQUE: Helically acquired images were obtained of the lumbar spine. 2D reformats were reviewed. A radiation dose optimization technique was used for this scan. IV Contrast dosage and agent: None. RADIATION DOSAGE (If Supplied By Facility): CTDIvol = ( 48.22 ) mGy, DLP = ( 1931.97 ) mGycm COMPARISON: FINDINGS: VERTEBRAE: No fracture or traumatic subluxation. No discrete lytic or blastic abnormality observed. Normal alignment. DISCS and SPINAL CANAL: L1-2, Endplate spondylosis. Decreased disc height and small circumferential disc bulge. Degenerative changes of the bilateral facet joints. Mild narrowing of the central canal and bilateral intervertebral neural foramina. At L2-3, L3-4, L4-5, L5-S1, multilevel moderate to severe spinal canal and neural foraminal stenosis most severe at L4-5 due to congenitally short pedicles, circumferential disc bulge and degenerative change of the facet joints. VISUALIZED ABDOMEN: Visualized abdominal aorta is not dilated. There is no retroperitoneal adenopathy. CT/Spine Lumbar without Contrast IMPRESSION: L1-2, Mild narrowing of the central canal and bilateral intervertebral neural foramina. At L2-3, L3-4, L4-5, L5-S1, multilevel moderate to severe spinal canal and neural foraminal stenosis. Electronically Signed: Maxim Fuller MD at 6:52 EDT ,
== END | disposition home or self-care (01) ==
LOC: CT 15:22
PROVIDERS: PCP Internal Medicine Infectious Disease; Referring Provider Psychiatry & Neurology Neurology; Visit Provider Psychiatry & Neurology Neurology
DX: M48.061 Spinal stenosis, lumbar region without neurogenic claudication (principal)
CPT/HCPCS: 72131

== ENCOUNTER → 2022-07-21 | Outpatient (CLI) | payer MEDICARE, OTHER, SELFPAY ==
[2022-07-21 18:11] LABS: Free T3 1.9 pg/mL (2.18-3.98); T4 Free Direct 0.99 ng/dL (0.76-1.46); Thyroid Stim Hormone (TSH) 3.16 uIU/mL (0.358-3.74)
[2022-07-24 14:09] LABS: Albumin 3.5 g/dL (2.9-4.4); Alpha-1-Globulins 0.3 g/dL (0.0-0.4); Alpha-2-Globulins 0.8 g/dL (0.4-1.0); Free Kappa Light Chains 105.1 mg/L (3.3-19.4); Free Lambda Light Chains 34.9 mg/L (5.7-26.3); Gamma Globulin 0.8 g/dL (0.4-1.8); Immunoglobulin A 237 mg/dL (61-437); Immunoglobulin G 886 mg/dL (603-1613); Immunoglobulin M 46 mg/dL (20-172); PROEL- TOTAL PROTEIN 6.4 g/dL (6.0-8.5)
== END | disposition home or self-care (01) ==
LOC: MTLAB 16:08
PROVIDERS: PCP Internal Medicine Infectious Disease; Referring Provider Psychiatry & Neurology Neurology; Visit Provider Psychiatry & Neurology Neurology
DX: E03.9 Hypothyroidism, unspecified (principal); Z79.4 Long term (current) use of insulin; G62.9 Polyneuropathy, unspecified
CPT/HCPCS: 36415; 82784; 83883; 84165; 84439; 84443; 84481; 86334; 86335

== ENCOUNTER → 2022-07-30 | Outpatient (CLI) | payer MEDICARE, OTHER, SELFPAY ==
[2022-07-30 17:49] LABS: Anion Gap 5 (5-15); BUN 21 mg/dL (7-18); BUN/Creat Ratio 23.2 RATIO (10-20); Chloride 102 mmol/L (98-107); EST Glomerular Filtration Rate 89 mL/min (>60); Est Glom Filt Rate - Afr Amer 108 mL/min (>60); Glucose 134 mg/dL (74-106); Potassium 3.8 mmol/L (3.5-5.1); Sodium Level 139 mmol/L (136-145)
== END | disposition home or self-care (01) ==
PROVIDERS: PCP Internal Medicine Infectious Disease; Visit Provider Nurse Practitioner Family
DX: I48.0 Paroxysmal atrial fibrillation (principal); R06.02 Shortness of breath; Z51.81 Encounter for therapeutic drug level monitoring
CPT/HCPCS: 36415; 80048; 83880; 87070; 87075; 87077; 87186; 87205

== ENCOUNTER → 2022-11-24 | Outpatient (CLI) | payer MEDICARE, OTHER, SELFPAY ==
[2022-11-24 18:29] LABS: Free T3 2.2 pg/mL (2.18-3.98); Thyroid Stim Hormone (TSH) 2.87 uIU/mL (0.358-3.74)
== END | disposition home or self-care (01) ==
LOC: MTLAB 15:58
PROVIDERS: PCP Internal Medicine Infectious Disease; Referring Provider Psychiatry & Neurology Neurology; Visit Provider Psychiatry & Neurology Neurology
DX: G25.0 Essential tremor (principal); E11.65 Type 2 diabetes mellitus with hyperglycemia; Z79.4 Long term (current) use of insulin; R94.6 Abnormal results of thyroid function studies
CPT/HCPCS: 36415; 82140; 84443; 84481

== ENCOUNTER → 2023-02-19 | Outpatient (CLI) | payer MEDICARE, OTHER, SELFPAY ==
[2023-02-19 17:59] LABS: Amphetamine Urine VISTA NEGATIVE (<1000 ng/mL); Barbiturate Urine VISTA NEGATIVE (< 200 ng/mL); Benzodiazepine Urine VISTA NEGATIVE (< 200 ng/mL); Cocaine Urine VISTA NEGATIVE (< 300 ng/mL); Ecstacy Urine VISTA NEGATIVE (< 500 ng/mL); Methadone Urine VISTA NEGATIVE (< 300 ng/mL); PCP Urine VISTA NEGATIVE (< 25 ng/mL); THC Urine VISTA NEGATIVE (< 50 ng/mL); Vista UDS pH Range 7
== END | disposition home or self-care (01) ==
LOC: LAB 17:23
PROVIDERS: PCP Internal Medicine Infectious Disease; Referring Provider Anesthesiology Pain Medicine; Visit Provider Anesthesiology Pain Medicine
DX: F11.20 Opioid dependence, uncomplicated (principal)
CPT/HCPCS: 80307

== ENCOUNTER → 2023-04-08 | Outpatient (CLI) | payer MEDICARE, OTHER, SELFPAY | END | disposition home or self-care (01) | PROVIDERS: PCP Internal Medicine Infectious Disease; Visit Provider Podiatrist | DX: L97.512 Non-pressure chronic ulcer of other part of right foot with fat layer exposed (principal) | CPT/HCPCS: 87070; 87075; 87077; 87186; 87205 ==

== ENCOUNTER → 2023-05-07 | Outpatient (CLI) | payer MEDICARE, OTHER, SELFPAY | END | disposition home or self-care (01) | LOC: MTLAB 13:47 | PROVIDERS: PCP Internal Medicine Infectious Disease; Referring Provider Psychiatry & Neurology Neurology; Visit Provider Psychiatry & Neurology Neurology | DX: E72.20 Disorder of urea cycle metabolism, unspecified (principal) | CPT/HCPCS: 36415; 82140 ==

== ENCOUNTER → 2023-05-21 | Outpatient (CLI) | payer MEDICARE, OTHER, SELFPAY ==
--- NOTE | 2023-05-21 09:23 | RAD_ITS ---
STUDY: X-RAY - ESOPHAGUS (BARIUM SWALLOW) WITH FLUOROSCOPY REASON FOR EXAM: Male, 68 years old. Dysphagia, unspecified TECHNIQUE: 15 view(s) of the esophagus were obtained following swallowing of barium. FLUOROSCOPY TIME (if supplied): (34 seconds) minutes/seconds. 19.2 mGy. COMPARISON: None. FINDINGS: There is no demonstrated esophageal foreign body. There is no demonstrated stricture or mucosal abnormality. Normal gastroesophageal junction, without a demonstrated hiatal hernia. The patient ingested a 12 mm tablet at bedtime without any difficulty. Normal visualized aortic arch and descending thoracic aorta. Normal visualized pulmonary parenchyma. Normal visualized osseous structures of the thorax. RAD/Esophagus Single Contrast IMPRESSION: Normal plain film x-ray examination (barium swallow) of the esophagus. Electronically Signed: Yosef Dumas MD at 15:16 EDT ,
== END | disposition home or self-care (01) ==
LOC: RAD 09:22
PROVIDERS: PCP Internal Medicine Infectious Disease; Referring Provider Internal Medicine Gastroenterology; Visit Provider Internal Medicine Gastroenterology
DX: R13.10 Dysphagia, unspecified (principal)
CPT/HCPCS: 74220

== ENCOUNTER → 2023-06-04 | Outpatient (CLI) | payer MEDICARE, OTHER, SELFPAY | END | disposition home or self-care (01) | PROVIDERS: PCP Internal Medicine Infectious Disease; Referring Provider Podiatrist; Visit Provider Podiatrist | DX: L97.222 Non-pressure chronic ulcer of left calf with fat layer exposed (principal) | CPT/HCPCS: 87070; 87075; 87205 ==

== ENCOUNTER → 2023-11-30 | Outpatient (CLI) | payer MEDICARE, OTHER, SELFPAY | END | disposition home or self-care (01) | PROVIDERS: PCP Internal Medicine Infectious Disease; Referring Provider Psychiatry & Neurology Neurology; Visit Provider Psychiatry & Neurology Neurology | DX: E72.20 Disorder of urea cycle metabolism, unspecified (principal) | CPT/HCPCS: 36415; 82140 ==

== ENCOUNTER → 2024-01-20 | Outpatient (CLI) | payer MEDICARE, OTHER, SELFPAY ==
--- NOTE | 2024-01-20 12:40 | NEURO ---
NCS and/or EMG Patient Report Ordering Doctor: Christian Chavarria DATE OF SERVICE: 01/20/24 Tanmay presents with numbness and tingling in the left hand. He reports that it has progressively worsened. Electrodiagnostic findings: Left median motor response could not be obtained. Left ulnar motor response demonstrates normal distal latency and amplitude. There is no significant drop in conduction across the elbow. Absent left median sensory latency at the wrist. Needle EMG testing was performed the left upper limb as well as the left cervical paraspinals. All muscles tested showed no evidence of denervation with normal motor unit potentials. Electrodiagnostic impression: This is an abnormal study. 1. Electrodiagnostic findings suggestive of left-sided median mononeuropathy. This is consistent with an advanced left carpal tunnel syndrome. Multi Select Codes Neurology Neurology Interp Codes: 29060-19 Musc test done w/n test comp (interp) and 54625-42 Nrv cndj test 7-8 studies (interp)
== END | disposition home or self-care (01) ==
LOC: PSN 09:56
PROVIDERS: PCP Internal Medicine Infectious Disease; Referring Provider Psychiatry & Neurology Neurology; Visit Provider Psychiatry & Neurology Neurology
DX: M79.642 Pain in left hand (principal); M54.2 Cervicalgia
CPT/HCPCS: 95886; 95910

== ENCOUNTER 2024-03-08 08:12 | Outpatient (RCR) | payer MEDICARE, OTHER, SELFPAY ==
[2024-03-08 08:31] VITALS: BP 102/44; PULSE 75; RESP 18; TEMP 35.9; BMI 35.2
--- NOTE | 2024-03-08 09:50 | PCM.WC.HP ---
History of Present Illness Date of Service: 03/08/24 Progress of Wound: 69-year-old male presents today with left lower extremity ulceration significantly improved from previous evaluation in the office setting. Patient additionally has a plantar right foot wound. Patient has a history of type 2 diabetes with peripheral arterial disease and peripheral neuropathy. Patient recently underwent heart catheterization is being worked up for possible valve replacement which I believe is contributing to diffuse swelling to bilateral lower extremities. Patient denies any constitutional's chest pain calf pain shortness of breath or any acute signs or symptoms of infection to either 1 side. No other complaints. FOR[facility]LY [facility] Medical History (Updated 03/08/24 @ 09:[address] Srinath Inman, DP) Congestive heart failure Primary osteoarthritis, right shoulder Right shoulder pain Obesity Benign hypertension Diabetes Encounter for long-term (current) insulin use GERD (gastroesophageal reflux disease) Abnormal ultrasound of gallbladder HTN (hypertension) Glaucoma Chronic neck pain Chronic back pain Gout Sleep apnea CAD (coronary artery disease) Home Medications ?Medication ?Instructions ?Recorded ?Last Taken ?Type coenzyme Q10 100 mg capsule 100 mg PO QDAY 06/01/17 Unknown History magnesium oxide 400 mg PO QDAY 06/01/17 Unknown History morphine 15 mg immediate release 15 mg PO BID 06/01/17 05/14/18 05:00 History tablet nitroglycerin 0.4 mg sublingual 0.4 mg sublingual Q5M PRN CHEST 06/01/17 Unknown History tablet PAIN omeprazole 40 mg capsule,delayed 40 mg PO QDAY 06/01/17 05/14/18 05:00 History release tizanidine 4 mg tablet 4 mg PO BID 06/01/17 Unknown History lancets 33 gauge (OneTouch Delica #100 ea 06/12/20 Unknown Rx Plus Lancet) Accu-Chek Fastclix Lancet Drum #102 ea 07/12/20 Unknown Rx (lancets) apixaban 5 mg tablet 5 mg PO BID 09/11/20 Unknown History flash glucose scanning reader #1 ea 09/11/20 Unknown Rx (FreeStyle Mp 2 Monson) flash glucose sensor (FreeStyle #2 ea 09/11/20 Unknown Rx Mp 2 Sensor kit) netarsudil 0.02 % eye drops 1 drp ophthalmic (eye) ONCE 09/11/20 Unknown History alcohol swabs (BD Alcohol Swabs) 1 pad topical 4X/DAY #200 ea 09/13/20 Unknown Rx gabapentin 800 mg tablet 800 mg PO TID 03/17/22 Unknown History sotalol 160 mg tablet 240 mg PO BID 03/17/22 Unknown History tramadol 50 mg tablet 100 mg PO Q6H PRN PRN Pain 03/17/22 Unknown History clopidogrel 75 mg tablet 75 mg PO DAILY 09/16/22 Unknown History ranolazine 500 mg tablet,extended 500 mg PO BID 09/16/22 Unknown History release,12 hr rosuvastatin 40 mg tablet 40 mg PO DAILY 09/16/22 Unknown History Novolog FlexPen U-100 Insulin 100 See Rx Instructions subcut .TIDCM 02/27/23 Unknown Rx unit/mL (3 mL) subcutaneous #45 mL (insulin aspart U-100) Tresiba FlexTouch U-100 100 20 unit (0.2 mL) subcut QHS #45 mL 02/27/23 Unknown Rx unit/mL (3 mL) subcutaneous pen (insulin degludec) pen needle, diabetic 32 gauge x #120 ea 03/10/23 Unknown Rx 1/4 (Novofine 32) alfuzosin 10 mg tablet,extended 10 mg PO QDAY 08/11/23 Unknown History release 24 hr ascorbic acid (vitamin C) 1,000 mg 1 g PO BID 08/11/23 Unknown History tablet calcitriol 3 mcg/gram topical 1 applic topical ONCE PRN 08/11/23 Unknown History ointment (Vectical) calcium carbonate 600 mg PO BID 08/11/23 Unknown History cholecalciferol (vitamin D3) 25 25 mcg PO DAILY 08/11/23 Unknown History mcg (1,000 unit) capsule dorzolamide 2 % eye drops drp ophthalmic (eye) 08/11/23 Unknown History famotidine 20 mg tablet 20 mg PO DAILY 08/11/23 Unknown History furosemide 40 mg tablet 40 mg PO BID 08/11/23 Unknown History guaifenesin 400 mg tablet (Mucus 400 mg PO .BID 08/11/23 Unknown History Relief) lactobacillus combination no.4 3 3,000 mmu cells PO DAILY 08/11/23 Unknown History billion cell capsule (Probiotic) latanoprost 0.005 % eye drops drp ophthalmic (eye) 08/11/23 Unknown History mupirocin 2 % topical ointment 1 applic topical BID-TID 08/11/23 Unknown History netarsudil 0.02 % eye drops 1 drp ophthalmic (eye) QPM 08/11/23 Unknown History (Rhopressa) nystatin-triamcinolone 100,000 1 applic topical DAILY 08/11/23 Unknown History unit/g-0.1 % topical cream nystatin-triamcinolone 100,000 applic topical 08/11/23 Unknown History unit/g-0.1 % topical cream polyethylene glycol 3350 17 4 g PO DAILY PRN 08/11/23 Unknown History gram/dose oral powder (Miralax) salicylic acid 6 % topical cream 1 applic topical QAM 08/11/23 Unknown History sennosides 17.2 mg tablet (Senokot 34.4 mg PO BID 08/11/23 Unknown History Extra Strength) timolol maleate 0.5 % eye drops drp ophthalmic (eye) 08/11/23 Unknown History vitamin B complex 1 tab PO DAILY 08/11/23 Unknown History diclofenac sodium 1 % topical gel 4 g topical .QID PRN 11/30/23 Unknown Rx pain/stiffness #100 grams left wrist splint #1 ea 11/30/23 Unknown Rx propranolol 60 mg capsule,24 See Rx Instructions .Route 11/30/23 Unknown Rx hr,extended release .COMPLEX #120 caps blood sugar diagnostic (OneTouch #100 ea 03/01/24 Unknown Rx Verio test strips) diltiazem HCl 240 mg 240 mg PO QAM 03/01/24 Unknown History capsule,extended release 24 hr Allergy/AdvReac Type Severity Reaction Status Date / Time Penicillins Allergy Severe Anaphylaxis Verified 03/08/24 08:30 ciprofloxacin (From Cipro) AdvReac Severe Rash Verified 03/08/24 08:30 Sulfa (Sulfonamide AdvReac Severe rash Verified 03/08/24 08:30 Antibiotics) Family History Mother Cancer liver Father Colon cancer Cancer lung CVA (cerebral vascular accident) Surgical History History of eye surgery Status post carotid surgery (~05/2016) H/O sinus surgery H/O nephrolithotomy with removal of calculi Status post cardiac catheterization History of neck surgery History of back surgery S/P foot surgery S/P colonoscopy History of esophagogastroduodenoscopy (EGD) (~03/2017) H/O heart artery stent (~01/2017) Social History Smoking Status: Former smoker Tobacco: How many years used: 1 second hand exposure: No alcohol intake: never substance use type: does not use vinay/zoroastrian: Yazidi seatbelt use: always Vital Signs Vital Signs Vital Signs: 03/08/24 08:31 Temperature 96.7 F L Temperature Source Temporal Pulse Rate 75 Respiratory Rate 18 Blood Pressure 102/44 L Blood Pressure Mean 63 Blood Pressure Source Monitor Blood Pressure Position Semi-Fowlers Blood Pressure Location Left Arm Oxygen Delivery Method Room Air Weight Weight: 117.934 kg Body Mass Index (BMI) 35.2 Physical Exam Narrative Vascular: Dorsalis pedis posterior tibial pulses palpable 1 out of 4 to bilateral lower extremity compartments. Atrophic skin changes such as skin thinning taut shiny dry in appearance. Capillary fill time delayed to bilateral lower extremity. No gross edema noted today. This is improved from previous evaluation. Neurologic: Light touch protective sensation absent to bilateral feet. Dermatologic: Full-thickness wound to plantar right first MPJ full-thickness wound to posterior left leg. Both wounds demonstrate clean granular bases with clean skin edges no deep probing undermining. No signs of erythema edema malodor pain warmth. Wound is dry in nature demonstrating scant serous drainage. Musculoskeletal: Equinus deformity to right lower extremity contributing to wound formation as well as plantarflexed first ray. Muscular strength 4 out of 5 to bilateral lower extremity compartments. Debridement Note Debridement Note Post-Debridement Measurements and Additional Note: Post-Debridement Measurements/Treatment - Nurse 1 - General Ulcer Assessment Start: 03/08/24 08:23 Freq: Status: Active Protocol: KAELA.LOWEXT Activity Type Activity Date Activity User E-sign Co-sign Detail Recorded Client Recorded Date Recorded By Document 03/08/24 08:31 KW [id number] 03/08/24 08:52 KW 03/08/24 08:31 - Today's Visit Information Type of service Initial Visit Arrival Mode Ambulatory,Cane Accompanied by daughter Patient Identification Verified (Name & Yes ) Finger Stick Blood Sugar(mg/dl) (if 179 indicated): Blood Sugar Stated by Patient Height and Weight Height 6 ft Weight 117.934 kg Weight in Pounds 260.0 lbs Weight Measurement Method Estimated by Patient Body Mass Index (BMI) 35.2 BMI Classification Obese BSA - Aaron 2.38 Vital Signs Temperature (97.8 F-99.1 F) 96.7 F L Temperature Source Temporal Pulse Rate (60-100) 75 Pulse Location Monitor Respiratory Rate (12-18) 18 Respiratory rate source Observation Oxygen Delivery Method Room Air Blood Pressure (90/60-120/80) 102/44 L Blood Pressure Mean 63 Source Monitor Position Semi-Fowlers Blood Pressure Location Left Arm History Since Last Visit- (Skip if this is Patient's initial visit) Left Footwear Regular Shoe Right Footwear Regular Shoe Pain Scale: 0-10 Numeric Is Patient Pain Free? Yes Lower Extremity Assessment/ Foot Assessment/ Toe Nail Assessment Right -Posterior Tibial Palpable Yes -Posterior Tibial Doppler Multiphasic -Dorsalis Pedis Palpable Yes -Dorsalis Pedis Doppler Multiphasic -Extremity Color Hyperpigmented -Hair Growth on Legs No -Hair Growth on Toes No -Temperature of Extremity Cool -Capillary Refill Less than 3 Seconds -Thick No -Discolored No -Deformed No -Improper Length & Hygeine No Left -Posterior Tibial Palpable Yes -Posterior Tibial Doppler Multiphasic -Dorsalis Pedis Palpable Yes -Dorsalis Pedis Doppler Multiphasic -Extremity Color Hyperpigmented -Hair Growth on Legs No -Hair Growth on Toes No -Temperature of Extremity Cool -Capillary Refill Less than 3 Seconds -Thick No -Discolored No -Deformed No -Improper Length & Hygeine No Communication Assessment Preferred language Stateless Container Coordinator Required No Able to Read Yes Able to Write Yes Communication Tools None Caregiver Communication Skills No Impairment Impairment Right Hearing Abillity Hard of Hearing Left Hearing Abillity Hard of Hearing Visual Assistive Devices None Teaching Assessment Preferences Verbal,Written, Demonstration Barriers to Learning None Readiness To Learn Excellent Willingness to Engage in Self Management High Activies Readiness to Engage in Self Management High Activities Anxiety Level Calm Cooperation Cooperative Perception Coherent Interest in Health Problem Asks Questions Education Importance Acknowledges Need Does Patient Smoke tobacco or other Yes substances Smoking Status Former smoker Is Patient Diabetic Yes Functional Assessment Recent Decline in Ability to Perform Ambulation Culture/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 Amusement Park Ride Mechanic to contact place of anglican No WC - Nurse 1 - General Ulcer Measurement Start: 03/08/24 08:23 Freq: Status: Active Protocol: Activity Type Activity Date Activity User E-sign Co-sign Detail Recorded Client Recorded Date Recorded By Document 03/08/24 08:31 KW [id number] 03/08/24 08:52 KW 03/08/24 08:31 Wound Center Nurse 1 #4 LT LAT LE -Current Size (cm) - Length 0.1 -Current Size (cm) - Width 0.1 -Current Size (cm) - Depth 0.1 -Total Square Cm 0.01 -Date of Last Picture (Recall this 03/08/24 field) -Exudate Amt None Present -Texture (Etelvina-wound Skin Appearance) Assessed -Moisture (Etelvina-wound Skin Appearance) Assessed -Color (Etelvina-wound Skin Appearance) Assessed -Temperature (Etelvina-wound Skin No Abnormality Appearance) (Pt Warm) -Tenderness on Palpation (Etelvina-wound No Skin Appearance) -Ulcer Cleansing Rinsed/ Irrigated with Saline -Foul Odor after Cleansing No -Anesthetic Used 5% Lidocaine Gel -Wound Comment(s) SCABBED #3 RT PLANTAR -Current Size (cm) - Length 0.5 -Current Size (cm) - Width 0.3 -Current Size (cm) - Depth 0.4 -Total Square Cm 0.15 -Date of Last Picture (Recall this 03/08/24 field) -Exudate Amt Small -Exudate Type Serosanguineous -Wound Margin Distinct, Outline Attached -Granulation Amt Large (67-100%) -Granulation Quality Red -Texture (Etelvina-wound Skin Appearance) Assessed,Callus -Moisture (Etelvina-wound Skin Appearance) Assessed -Color (Etelvina-wound Skin Appearance) Assessed -Temperature (Etelvina-wound Skin No Abnormality Appearance) (Pt Warm) -Tenderness on Palpation (Etelvina-wound No Skin Appearance) -Ulcer Cleansing Rinsed/ Irrigated with Saline -Foul Odor after Cleansing No -Anesthetic Used 5% Lidocaine Gel Right Calf (cm) 35 Right Ankle (cm) 21 Left Calf (cm) 36 Left Ankle (cm) 22.6 WC - Nurse 2 - General Ulcer CM Notes Start: 03/08/24 08:23 Freq: Status: Active Protocol: Activity Type Activity Date Activity User E-sign Co-sign Detail Recorded Client Recorded Date Recorded By Document 03/08/24 09:09 JONATHAN [id number] 03/08/24 09:11 JONATHAN 03/08/24 09:09 Wound Center Nurse 2 #4 LT LAT LE -Time 09:09 -Correct Patient Yes -Correct Side, Site, Position Yes -Correct Procedure Yes -Procedure Performed Yes -Type of Procedure Debridement -Clinical Debridement Subcutaneous -Tissue Removed Subcutaneous -Post Debridement (cm) - Length 0.5 -Post Debridement (cm) - Width 0.3 -Post Debridement (cm) - Depth 0.1 -Total Square (Post) (cm) 0.15 -Area of Debridement (cm) - Length 0.5 -Area of Debridement (cm) - Width 0.3 -Total Square (Area) (cm) 0.15 -Tunneling No -Undermining/Tunneling No -Circular Undermining No -Wound/Ulcer Outcome Not Healed -Ulcer Cleansing Rinsed/ Irrigated with Saline -Foul Odor after Cleansing No -Bioengineered Tissue No -Bleeding Controlled with Pressure -Treatment Response Procedure Tolerated Well -Offloading No -Debridement - Subq, 1st 20sq cm No #3 RT PLANTAR -Time 09:10 -Correct Patient Yes -Correct Side, Site, Position Yes -Correct Procedure Yes -Procedure Performed Yes -Type of Procedure Debridement -Clinical Debridement Subcutaneous -Tissue Removed Subcutaneous -Post Debridement (cm) - Length 0.5 -Post Debridement (cm) - Width 0.5 -Post Debridement (cm) - Depth 0.1 -Total Square (Post) (cm) 0.25 -Area of Debridement (cm) - Length 0.5 -Area of Debridement (cm) - Width 0.5 -Total Square (Area) (cm) 0.25 -Tunneling No -Undermining/Tunneling No -Circular Undermining No -Wound/Ulcer Outcome Not Healed -Ulcer Cleansing Rinsed/ Irrigated with Saline -Foul Odor after Cleansing No -Bioengineered Tissue No -Bleeding Controlled with Pressure -Treatment Response Procedure Tolerated Well -Offloading No -Debridement - Subq, 1st 20sq cm Yes Pain Scale: 0-10 Numeric Is Patient Pain Free? Yes WC - Nurse 3 - General Ulcer D/C NN Start: 03/08/24 08:23 Freq: Status: Active Protocol: Activity Type Activity Date Activity User E-sign Co-sign Detail Recorded Client Recorded Date Recorded By Document 03/08/24 09:42 GOMEZ [id number] 03/08/24 09:44 RB 03/08/24 09:42 Wound Care Center Nurse 3 #4 LT LAT LE -Ulcer Cleansing Rinsed/ Irrigated with Saline -Primary Dressing Applied C Hydrogel ($) -Primary Dressing Covered/Secured with Dry Gauze,Dry Gauze & Roll Gauze,Secured with Tape #3 RT PLANTAR -Ulcer Cleansing Rinsed/ Irrigated with Saline -Other Dressing HYDROGEL -Primary Dressing Covered/Secured with Dry Gauze,Dry Gauze & Roll Gauze,Secured with Tape BILAT LE -Tubular Bandage Single Layer -Size of Tubigrip Used Size E -Size E ($) 2 Treatment Response Procedure Tolerated Well Pain Scale: 0-10 Numeric Is Patient Pain Free? Yes Teaching: Wound Center Compression Wraps & Stockings -Person Taught Patient,Family -Teaching Method Discussion, Demonstration -Response to teaching Reinforcement Needed Dressing Your Wound -Person Taught Patient,Family -Teaching Method Discussion, Demonstration -Response to teaching Reinforcement Needed WC - Visit Discharge Discharge Condition Stable Ambulatory Status Ambulatory,Cane Transportation Private Auto Accompanied by DAUGHTER Medication Reconcilliation completed & No provided to patient/care provider Clinical Summary of Care Provided Yes Assessment/Plan Assessment/Plan (1) Type 2 diabetes mellitus with diabetic polyneuropathy: CODE(S): E11.42 - Type 2 diabetes mellitus with diabetic polyneuropathy QUALIFIERS: Diabetes mellitus terminal system operator insulin use: with senior living use Qualified Code(s): E11.42 - Type 2 diabetes mellitus with diabetic polyneuropathy; 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 Topical anesthesia used. Hemostasis obtained with light compression. Pre and postdebridement measurements documented nursing notes. Patient tolerated procedure well. Plan for daily hydrogel DSD and Tubigrip for compression until arterial venous studies received Offload right plantar foot wound with diabetic shoe gear custom inserts Follow-up weekly (2) Other specified peripheral vascular diseases: CODE(S): I73.89 - Other specified peripheral vascular diseases (3) Non-pressure chronic ulcer of other part of right foot with fat layer exposed: CODE(S): L97.512 - Non-pressure chronic ulcer of other part of right foot with fat layer exposed (4) Non-pressure chronic ulcer of left calf with fat layer exposed: CODE(S): L97.222 - Non-pressure chronic ulcer of left calf with fat layer exposed
== END 2024-03-18 23:59 | disposition home or self-care (01) ==
LOC: WC 08:12
PROVIDERS: PCP Internal Medicine Infectious Disease; Referring Provider Podiatrist; Visit Provider Podiatrist
DX: E11.621 Type 2 diabetes mellitus with foot ulcer (principal); L97.412 Non-pressure chronic ulcer of right heel and midfoot with fat layer exposed; L97.222 Non-pressure chronic ulcer of left calf with fat layer exposed; I11.0 Hypertensive heart disease with heart failure; I50.9 Heart failure, unspecified; E11.42 Type 2 diabetes mellitus with diabetic polyneuropathy; Z79.4 Long term (current) use of insulin; E11.51 Type 2 diabetes mellitus with diabetic peripheral angiopathy without gangrene; I25.10 Atherosclerotic heart disease of native coronary artery without angina pectoris; K21.9 Gastro-esophageal reflux disease without esophagitis; M54.9 Dorsalgia, unspecified; G89.29 Other chronic pain; M79.89 Other specified soft tissue disorders; Z79.01 Long term (current) use of anticoagulants; Z79.891 Long term (current) use of opiate analgesic; Z79.899 Other long term (current) drug therapy; Z87.891 Personal history of nicotine dependence
CPT/HCPCS: 11042; 99214; G0463

== ENCOUNTER 2024-03-25 09:34 | Outpatient (RCR) | payer MEDICARE, OTHER, SELFPAY ==
[2024-03-19 01:19] VITALS: BP 102/44; PULSE 75; RESP 18; TEMP 35.9; BMI 35.2
--- NOTE | 2024-03-25 09:38 | VDLE_ITS ---
Reason For Study: BLE Wounds RIGHT LEFT CFV is compressible, spontaneous, phasic, CFV is compressible, spontaneous, phasic, competent and demonstrates normal competent, and demonstrates normal augmentation. augmentation. FV is compressible, spontaneous, phasic, FV is compressible, spontaneous, phasic, competent and demonstrates normal competent and demonstrates normal augmentation. augmentation. POP V is compressible, spontaneous, phasic, POP V is compressible, spontaneous, phasic, competent and demonstrates normal competent and demonstrates normal augmentation. augmentation. T/P Trunk is compressible. T/P Trunk is compressible. PTV is compressible. PTV is compressible. RT PerV is compressible. LT PerV is compressible. SFJ is competent and measures 0.81 cm. SFJ is INCOMPETENT and measures 0.50 cm. GSV proximal thigh measures 0.40 x 0.43 cm. GSV proximal thigh measures 0.25 x 0.24 cm. GSV at knee measures 0.37 x 0.49 cm. GSV at knee measures 0.34 x 0.32 cm. GSV above knee is competent. GSV is competent throughout. GSV below knee is INCOMPETENT for greater SSV at junction is competent and measures than 0.5 seconds. 0.39 cm. SSV at junction is competent and measures SSV mid calf is competent and measures 0.25 x 0.34 cm. 0.32 cm. SSV mid calf is competent and measures 0.25 x 0.31 cm. Procedure Exam performed in department. This is a venous duplex using B-mode, color flow and spectral Doppler. The exam was diagnostic. VL/Venous Duplex US - Amaury Extrem Interpretation Summary Deep veins of the lower extremities are bilaterally patent and compressible seg mentally. There is no evidence of deep vein thrombosis on either side. Valvular competence appears in tact within the proximal deep venous systems bilaterally. The great saphenous veins appear bila terally patent and compressible segmentally. The right sapheno-femoral junction is competent . The left sapheno-femoral junction is incompetent . The right great saphenous vein appears competent abov e the knee. The right great saphenous vein appears incompetent below the knee. The left great sapheno us vein appears segmentally competent. Small saphenous veins are patent and competent bilateral ly. Ordering Physician: Srinath Inman Referring Physician: Paco Zuleta Performed By: Yossi Blake RVT
--- NOTE | 2024-03-25 09:38 | ART_ITS ---
Reason For Study: BLE Wounds Procedure A bilateral lower extremity continuous wave Doppler with analog waveform analysis,segmental pressures,and ankle brachial indexes without exercise. Left Segmental Pressures Left brachial= 124mmHg. Left posterior tibial artery = 150mmHg. Left dorsalis pedis artery = 152mmHg. Left digit = 143 mmHg. The left posterior tibial artery waveforms are triphasic. The left dorsalis pedis waveforms are triphasic. Right Segmental Pressures Right brachial= 140mmHg. Right posterior tibial artery = 150mmHg. Right dorsalis pedis artery = 149mmHg. Right digit = 157 mmHg. The right posterior tibial artery waveforms are triphasic. The right dorsalis pedis waveforms are triphasic. Indices The right ankle brachial index by the posterior tibial artery is 1.07. The right ankle brachial index by the dorsalis pedis is 1.06. The right digital-brachial index is 1.12. The left ankle brachial index by the posterior tibial artery is 1.07. The left ankle brachial index by the dorsalis pedis is 1.09. The left digital-brachial index is 1.02. VL/Lower Ext Art Exam w/o Exercis Interpretation Summary Triphasic Doppler waveforms are noted at ankle level bilaterally. Pulse-volume recordings appear diminished at digital level on the right, but satisfactory at all other levels bilaterally. Resting ankle-brachial indices are normal bilaterally. Digital-brachial indices are nor mal bilaterally. There is no evidence of significant arterial occlusive disease in the lower ext remities bilaterally. Ordering Physician: Srinath Inman Referring Physician: Paco Zuleta Performed By: Yossi Blake RVT
== END 2024-04-15 23:59 | disposition home or self-care (01) ==
LOC: WC 09:34
PROVIDERS: PCP Internal Medicine Infectious Disease; Referring Provider Podiatrist; Visit Provider Podiatrist
DX: E11.621 Type 2 diabetes mellitus with foot ulcer (principal); E11.622 Type 2 diabetes mellitus with other skin ulcer; L97.929 Non-pressure chronic ulcer of unspecified part of left lower leg with unspecified severity; L97.519 Non-pressure chronic ulcer of other part of right foot with unspecified severity; I83.028 Varicose veins of left lower extremity with ulcer other part of lower leg; L97.829 Non-pressure chronic ulcer of other part of left lower leg with unspecified severity; I83.015 Varicose veins of right lower extremity with ulcer other part of foot; E11.51 Type 2 diabetes mellitus with diabetic peripheral angiopathy without gangrene; I10 Essential (primary) hypertension; E78.5 Hyperlipidemia, unspecified
CPT/HCPCS: 93923; 93970

== ENCOUNTER → 2024-04-13 | Outpatient (CLI) | payer MEDICARE, OTHER, SELFPAY | END | disposition home or self-care (01) | PROVIDERS: PCP Internal Medicine Infectious Disease; Visit Provider Podiatrist | DX: L97.512 Non-pressure chronic ulcer of other part of right foot with fat layer exposed (principal) | CPT/HCPCS: 87070; 87075; 87077; 87186; 87205 ==